=== PATIENT | male | born 1930 | race Caucasian/White ===

== ENCOUNTER 2018-02-12 13:06 | Outpatient (CLI) | payer MEDICARE, BC ==
--- NOTE | 2018-02-12 15:14 | ULT ---
THYROID ULTRASOUND: Date: 02/12/18 HISTORY: Nodule noted on CT. COMPARISON: None. TECHNIQUE: Sagittal and transverse imaging of the thyroid gland is performed. FINDINGS: Thyroid isthmus measures 0.27 cm. Right thyroid lobe measures 4.0 x 1.6 x 1.5 cm. Left thyroid lobe m easures 3.1 x 1.0 x 0.7 cm. There is a hypoechoic lesion in the lower pole of the right thyroid lobe measuring 0.9 x 1.2 x 1.2 cm . IMPRESSION: Solitary hypoechoic lesion in the lower pole of the right thyroid lobe with a TI-RADS calculator of T R4. Given maximum density of 1.2 cm, follow-up imaging is 1 year is recommended. POS: AMI
== END 2018-02-12 13:07 | disposition home or self-care (01) ==
LOC: SCSULT 13:06
PROVIDERS: ATTEND Family Medicine
DX: E04.1 Nontoxic single thyroid nodule (principal); E07.9 Disorder of thyroid, unspecified
CPT/HCPCS: 76536

== ENCOUNTER 2018-06-18 14:03 | Outpatient (CLI) | payer MEDICARE, BC | END 2018-06-18 14:04 | disposition home or self-care (01) | LOC: BICMAMMO 14:03 | PROVIDERS: ATTEND Family Medicine | DX: N64.89 Other specified disorders of breast (principal); Z85.46 Personal history of malignant neoplasm of prostate | CPT/HCPCS: 77066; G0279 ==